=== PATIENT | male | born 1970 | race Caucasian/White ===

== ENCOUNTER 2025-04-06 20:30 | Emergency (ER) | payer OTHER, SELFPAY ==
[2025-04-06 21:11] VITALS: BP 138/81; PULSE 65; RESP 17; TEMP 36.6; O2SAT 98; BMI 25.0
--- NOTE | 2025-04-06 21:16 | DI.RAD.S_ITS ---
PROCEDURE: XR FOOT RT MIN 3V INDICATIONS: stepped on a adi nail, removed it himself TECHNIQUE: 3 views of the foot were acquired. COMPARISON: None. FINDINGS: Bones: No fractures or dislocations. No suspicious bony lesions. Soft tissues: No tibiotalar joint effusion. Achilles tendon appears normal. No radiopaque foreign. IMPRESSION: No visualized acute fracture or dislocation. However, if clinical concern and/or pain persist, short interval imaging followup in 7-10 days is recommended, as occult injury cannot be definitively excluded. No radiopaque foreign body. Dictated by: Evonne Ricks M.D. on 04/06/2025 at 22:13 Approved by: Evonne Ricks M.D. on 04/06/2025 at 22:13
[2025-04-06] MEDS: TET,DIPH,PERTUSS(ACELL),VAC/PF 0.5 ML SYRINGE IM (23:18)
--- NOTE | 2025-04-06 23:20 | PC.NURSE ---
pt stepped on a adi nail while working in the yard, the nail went thru his shoe into his right foot, he cleaned the area after it happened. area is clean and dry without any drainage noted, no reddening or swelling
--- NOTE | 2025-04-07 01:05 | ED_ITS ---
HPI - Skin/Abscess/Foreign Bdy General Chief complaint: Skin/Abscess/Foreign Body Stated complaint: stepped on adi nail, rt foot Time Seen by Provider: 04/07/25 00:17 Source: patient Mode of arrival: Ambulatory Limitations: no limitations History of Present Illness HPI narrative: Pleasant 54-year-old man comes to the ER because of stepping on a nail. He primarily came in just to get a tetanus shot. He admits to ongoing pain. He states that the nail that he removed was complete so he does not suspect any foreign body. He denies any other injuries or any other concerns or complaints at this time. He states that the nail only went into his foot about 1/4 inch or less. He was wearing shoes at the time of the injury. Related Data Previous Rx's ?Medication ?Instructions ?Recorded meloxicam 7.5 mg tablet (Mobic) 7.5 mg PO BIDCC PRN #2 0 tabs 12/29/16 Allergies Allergy/AdvReac Type Severity Reaction Status Date / Time No Known Drug Allergies Allergy Verified 04/06/25 21:11 Patient History Smoking Status: Former smoker Exam Initial Vital Signs Initial Vital Signs: Vital Signs Temperature 97.9 F 04/06/25 21:11 Pulse Rate 65 04/06/25 21:11 Respiratory Rate 17 04/06/25 21:11 Blood Pressure 138/81 04/06/25 21:11 Pulse Oximetry 98 04/06/25 21:11 Oxygen Delivery Method Room Air 04/06/25 21:11 Skin Other: There is a small 0.3 cm laceration on the sole of the left foot. Course Course Course Narrative: Patient seen and examined by myself when he was roomed. He already received a tetanus shot and x-ray. X-ray did not show any radiopaque foreign body. The patient reiterated that he mainly just came in to get his tetanus shot done right away. Since this was not truly a deep puncture wound as it only went into his foot less than half a cm, in shared decision making with the patient, we agreed to not start him on prophylactic antibiotics right now, rather I gave him strict return instructions to be re-evaluated for any redness, swelling, drainage, warmth or increased pain or fevers. The patient was in agreement with this plan. Orders Ordered: ED Orders 04/06/25 21:16 XR foot RT min 3V Stat Discontinued Medications Diphtheria/Tetanus/Acell Pertussis (Tet,Diph,Pertuss(Acell),Vac/Pf 0.5 Ml Syringe) 0.5 ml IM .ONCE ONE Stop: 04/06/25 21:17 Last Admin: 04/06/25 23:18 Dose: 0.5 ml Documented By: MARY Vital Signs Vital signs: Vital Signs - 8 hr 04/06/25 21:11 Temperature 97.9 F Pulse Rate 65 Respiratory Rate 17 Blood Pressure 138/81 Pulse Oximetry 98 Oxygen Delivery Method Room Air MDM - Skin/Abscess/Foreign Bdy Differential Diagnosis Differential diagnosis: Likely abscess of skin or subcutaneous tissue and other (laceration, deep puncture wound) Discharge Plan Departure Patient Disposition: Home Clinical Impression: Foot laceration Activity Restrictions/Additional Instructions: If there is any change or worsening in your condition especially increased pain, redness, swelling, drainage, warmth, fever, chills, sweats, nausea, vomiting, inability to walk or any other concerns or complaints then please return to the ER right away for further evaluation. Otherwise, please follow up with your PCP as soon as possible for re-evaluation. Prescriptions: No Action meloxicam [Mobic] 7.5 MG tablet 7.5 mg PO BIDCC PRNQty: 20 0RF Stand Alone Forms: Patient Portal/API
== END 2025-04-07 01:24 | disposition home or self-care (01) ==
PROVIDERS: Emergency Provider Emergency Medicine
DX: S91.311A Laceration without foreign body, right foot, initial encounter (principal); W45.0XXA Nail entering through skin, initial encounter; Z23 Encounter for immunization
CPT/HCPCS: 73630; 90471; 99283; 90715

== ENCOUNTER → 2025-09-19 08:33 | Outpatient (CLI) | payer OTHER, SELFPAY ==
--- NOTE | 2025-09-19 08:35 | DI.US.S_ITS ---
PROCEDURE: US ABDOMEN LIMITED INDICATIONS: Possible liver cyst TECHNIQUE: Real-time scanning was performed of the abdominal and retroperitoneal organs, with image documentation. COMPARISON: [facility], MR, MR THORACIC SPINE WITHOUT CONTRAST, 07/25/2025, 13:22. FINDINGS: Liver: Liver is normal in size and homogeneous in echotexture. A 1.6 cm cyst in the posterior right hepatic lobe with increased through transmission. Gallbladder: No gallstones. No wall thickening. No pericholecystic edema. Negative sonographic Day's sign. Biliary ducts: Intrahepatic bile ducts are non-dilated. Extrahepatic bile duct caliber measures 6 mm. Normal is 6-7 mm or less in diameter, or 10 mm or less post-cholecystectomy. Pancreas: Visualized portions of the pancreas are sonographically normal. Miscellaneous: No free abdominal fluid. IMPRESSION: Unremarkable right upper quadrant ultrasound. Posterior right hepatic lobe 1.6 cm cyst, which does not require further follow-up. Dictated by: Jose Milligan M.D. on 09/19/2025 at 11:22 Approved by: Jose Milligan M.D. on 09/19/2025 at 11:24
== END ==
PROVIDERS: PCP Family Medicine; Referring Provider Family Medicine; Visit Provider Family Medicine
DX: K76.89 Other specified diseases of liver (principal); R93.89 Abnormal findings on diagnostic imaging of other specified body structures
CPT/HCPCS: 76705